=== PATIENT | female | born 1935 | race Caucasian/White ===

== ENCOUNTER → 2024-09-27 | Outpatient (CLI) | payer MEDICARE, OTHER ==
[2024-09-27 15:26] LABS: BUN/Creat Ratio 20.46 Ratio (12.00-20.00); Blood Urea Nitrogen 26.6 mg/dL (9.0-27.0); Calcium 9.1 mg/dL (8.7-10.3); Carbon Dioxide 32.4 mmol/L (21.6-31.8); Chloride 93 mmol/L (96-109); Glucose 115 mg/dL (70-110); Magnesium 1.4 mg/dL (1.5-2.4); Potassium 2.8 mmol/L (3.5-5.5); Sodium 138 mmol/L (135-145)
== END | disposition home or self-care (01) ==
LOC: LABWHC1 08:33
PROVIDERS: ATTEND Internal Medicine Nephrology
DX: E83.40 Disorders of magnesium metabolism, unspecified (principal); N18.9 Chronic kidney disease, unspecified
CPT/HCPCS: 36415; 80048; 83735

== ENCOUNTER 2024-10-09 16:06 | Emergency (ER) | payer MEDICARE, OTHER ==
--- NOTE | 2024-10-09 16:28 | ED ---
Chest Pain HPI - General Chief Complaint: Chest Pain Stated Complaint: Chest Pain Time Seen by Provider: 10/09/24 16:14 Source: patient Mode of arrival: wheelchair Limitations: no limitations - History of Present Illness Initial Comments: This patient is an 89-year-old woman who arrives here with complaint of left- sided chest pain that she noticed between 2 and 230 this afternoon while she was in her kitchen. The patient has noted a pleuritic component. The pain is achy but sometimes sharp when she takes a deep breath. She has not noted other wor sening or relieving factors. No fever or chills. No cough. She has some baseline dyspnea with exertion and she has not noted a change there. 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 She gets the majority of her oncology treatment in [place] where she spends part of the year. She does not have a local physician yet. The patient also has history of atrial fibrillation and is taking Eliquis. MD Complaint: chest pain Onset/Timin -: hour(s) Onset: during rest Pain Location: left chest Pain Radiation: LUE Severity: moderate Quality: aching, sharp Consistency: constant Improves With: nothing Worsens With: inspiration Treatments Prior to Arrival: none - Related Data Previous Rx's Medication Instructions Recorded predniSONE 60 mg PO DAILY #30 tab 10/09/24 Allergies Allergy/AdvReac Type Severity Reaction Status Date / Time allopurinol Allergy Anaphylaxis Verified 10/09/24 16:13 Penicillins Allergy Rash/Hives Verified 10/09/24 16:13 Review of Systems ROS Statement: Those systems with pertinent positive or pertinent negative responses have been documented in the HPI. ROS Other: All systems not noted in ROS Statement are negative. Constitutional: Denies: fever, chills Respiratory: Denies: cough, dyspnea Cardiovascular: Reports: chest pain, dyspnea on exertion. Denies: palpitations, orthopnea, edema, syncope Gastrointestinal: Denies: abdominal pain, nausea, vomiting Genitourinary: Denies: dysuria, hematuria Musculoskeletal: Denies: back pain Skin: Denies: rash Neurological: Denies: headache, weakness EKG Findings - EKG Results: EKG: interpreted by MIRTHA, normal axis EKG shows: atrial fibrillation (Rate 87 bpm) - Blocks, Stella, Hypertrophy, ST Abn: QRS axis and voltage: low voltage (<0.5 MV total QRS and <1.0 MV in each precordial lead) Past Medical History Past Medical History: Atrial Fibrillation, Cancer, Heart Failure, Hyperlipidemia, Hypertension, Thyroid Disorder History of Any Multi-Drug Resistant Organisms: None Reported Past Surgical History: Breast Surgery, Section, Hysterectomy, Joint Replacement, Orthopedic Surgery, Tonsillectomy Past Psychological History: No Psychological Hx Reported Smoking Status: Former smoker Past Alcohol Use History: Occasional Past Drug Use History: Marijuana General Exam Limitations: no limitations General appearance: alert, in no apparent distress Head exam: Present: atraumatic, normocephalic Eye exam: Present: normal appearance. Absent: scleral icterus, conjunctival injection ENT exam: Present: normal oropharynx Neck exam: Present: normal inspection Respiratory exam: Present: normal lung sounds bilaterally. Absent: respiratory distress, wheezes, rales, rhonchi, stridor, accessory muscle use Cardiovascular Exam: Present: irregular rhythm, normal heart sounds. Absent: systolic murmur, diastolic murmur, rubs, gallop GI/Abdominal exam: Present: soft. Absent: distended, tenderness, guarding, rebound, rigid, mass Extremities exam: Present: normal inspection, normal capillary refill. Absent: pedal edema, calf tenderness Back exam: Present: normal inspection. Absent: CVA tenderness (R), CVA tenderness (L) Neurological exam: Present: alert Skin exam: Present: warm, dry, intact, normal color. Absent: rash Course Vital Signs 10/09/24 10/09/24 10/09/24 16:09 16:28 16:33 Temperature 97.9 F Pulse Rate 63 Pulse Rate [ 85 Right Supine Pulse Oximetery ] Respiratory 16 19 Rate Blood Pressure 142/90 O2 Sat by Pulse 94 L Oximetry 10/09/24 20:20 Temperature 98.5 F Pulse Rate 73 Pulse Rate [ Right Supine Pulse Oximetery ] Respiratory 19 Rate Blood Pressure 108/58 O2 Sat by Pulse 95 Oximetry [facility] Patient is an 89-year-old woman here to have evaluation of pleuritic chest pain. She does have history of a reported recurrence of breast cancer within the chest. Given the history the patient had CT angiogram of the chest which I interpreted as negative for acute pulmonary embolism, negative for pneumothorax. The patient was feeling better following analgesic, she is to follow-up with the oncologist for further evaluation. Was pt. sent in by a medical professional or institution ([facility] Joshi, [employer], urgent care, hospital, or correction...) When possible be specific @ -[No] Did you speak to anyone other than the patient for history (EMS, parent, family, police, friend...)? What history was obtained from this source @ -[No] Did you review nursing and triage notes (agree or disagree)? Why? @ -[I reviewed and agree with nursing and triage notes] Were old charts reviewed (outside hosp., previous admission, EMS record, old EKG, old radiological studies, urgent care reports/EKG's, correction records)? Report findings @ -[No old charts were reviewed] Differential Diagnosis (chest pain, altered mental status, abdominal pain women, abdominal pain men, vaginal bleeding, weakness, fever, dyspnea, syncope, headache, dizziness, GI bleed, back pain, seizure, CVA, palpatations, mental health, musculoskeletal)? @ -[Differential Chest Pain: Stable Angina, Unstable Angina, STEMI, NSTEMI Aortic Dissection, Pneumothorax, Musculoskeletal, Esophageal Spasm GERD, Cholecystitis, Pancreatitis, Zoster, th is is not meant to be an all-inclusive list. EKG interpreted by me (3pts min.). @ -[I interpreted as above] X-rays interpreted by me (1pt min.). @ -[None done] CT interpreted by me (1pt min.). @ -[I interpreted as above U/S interpreted by me (1pt. min.). @ -[None done] What testing was considered but not performed or refused? (CT, X-rays, U/S, labs)? Why? @ -[None] What meds were considered but not given or refused? Why? @ -[None] Did you discuss the management of the patient with other professionals (professionals i.e. KIMMIE Joshi, [employer], lab, RT, psych nurse, health social work professor, web development manager, teacher, chief procurement officer, protective services case worker)? Give summary @ -[No] Was smoking cessation discussed for >3mins.? @ -[No] Was critical care preformed (if so, how long)? @ -[No] Were there social determinants of health that impacted care today? How? (Homelessness, low income, unemployed, alcoholism, drug addiction, transportation, low edu. Level, literacy, decrease access to med. care, shelter, rehab)? @ -[No] Was there de-escalation of care discussed even if they declined (Discuss DNR or withdrawal of care, Hospice)? DNR status @ -[No] What co-morbidities impacted this encounter? (DM, HTN, Smoking, COPD, CAD, Cancer, CVA, ARF, Chemo, Hep., AIDS, mental health diagnosis, sleep apnea, morbid obesity)? @ -[Breast cancer with reported recurrence in the chest Was patient admitted / discharged? Hospital course, mention meds given and route, prescriptions, significant lab abnormalities, going to OR and other pertinent info. @ -[As above Undiagnosed new problem with uncertain prognosis? @ -[No] Drug Therapy requiring intensive monitoring for toxicity (Heparin, Nitro, Insulin, Cardizem)? @ -[No] Were any procedures done? @ -[No] Diagnosis/symptom? @ -[Pleuritic chest pain Acute, or Chronic, or Acute on Chronic? @ -[Acute Uncomplicated (without systemic symptoms) or Complicated (systemic symptoms)? @ -[Uncomplicated Side effects of treatment? @ -[No] Exacerbation, Progression, or Severe Exacerbation? @ -[No] Poses a threat to life or bodily function? How? (Chest pain, [place], [place], pneumonia, PE, COPD, DKA, ARF, appy, cholecystitis, CVA, Diverticulitis, Homicidal, Suicidal, threat to staff... and all critical care pts) @ -Requires further oncology evaluation, discussed follow-up and return parameters All treatments are based on ideal body weight as in ED triage Disposition Clinical Impression: Pleuritic chest pain Disposition: HOME SELF-CARE Condition: Good Instructions (If sedation given, give patient instructions): Chest Pain (ED) Prescriptions: predniSONE 60 mg PO DAILY #30 tab Is patient prescribed a controlled substance at d/c from ED?: No Referrals: Nonstaff,Physician [Primary Care Provider] - 1-2 days Forms: Area PCPs
[2024-10-09 16:33] VITALS: RESP 19
[2024-10-09 16:48] LABS: Appearance,Urine Clear (Clear); Bilirubin,Urine Negative (Negative); Blood,Urine Negative (Negative); Color,Urine Colorless; Glucose,Urine (UA) Negative (Negative); Ketones,Urine Negative (Negative); Leukocyte Esterase,Urine Negative (Negative); Nitrite,Urine Negative (Negative); PH, Urine 5.5 (5.0-8.0); Protein,Urine Negative (Negative); Specific Gravity,Urine 1.006 (1.001-1.035); Urobilinogen,Urine <2.0 mg/dL (<2.0)
[2024-10-09 17:07] LABS: Basophils # (A) 0.07 10*3/uL (0.00-0.10); Basophils % (A) 2.1 %; Eosinophils # (A) 0.03 10*3/uL (0.04-0.35); Eosinophils % (A) 0.9 %; HCT 35.3 % (37.2-46.3); HGB 12.2 g/dL (12.0-15.0); Lymphocytes % (A) 26.6 %; MCH 40.5 pg (27.0-32.0); MCHC 34.6 g/dL (32.0-37.0); MCV 117.3 fL (80.0-97.0); Monocytes # (A) 0.29 10*3/uL (0.20-1.00); Monocytes % (A) 8.6 %; Neutrophils # (A) 2.07 10*3/uL (1.80-7.70); Neutrophils % (A) 61.2 %; Platelet Count 291 10*3/uL (140-440); RBC 3.01 10*6/uL (4.10-5.20); WBC 3.38 10*3/uL (4.50-10.00)
[2024-10-09 17:23] LABS: ALT 18 U/L (4-34); AST 33 U/L (14-36); African American GFR (CKD) 33 (>60 ml/min/1.73 sqM); Albumin 4.3 g/dL (3.5-5.0); Alkaline Phosphatase 68 U/L (38-126); Anion Gap 10 mmol/L; Blood Urea Nitrogen 32 mg/dL (7-17); Calcium 10.6 mg/dL (8.4-10.2); Carbon Dioxide 29 mmol/L (22-30); Chloride 97 mmol/L (98-107); Glucose 102 mg/dL (74-99); Magnesium 2.2 mg/dL (1.6-2.3); Non-African American GFR(CKD) 29 (>60 ml/min/1.73 sqM); Potassium 4.1 mmol/L (3.5-5.1); Sodium 136 mmol/L (137-145); Total Bilirubin 0.8 mg/dL (0.2-1.3); Total Protein 7.1 g/dL (6.3-8.2)
[2024-10-09 17:26] LABS: Partial Thromboplastin Time 24.3 sec (22.0-30.0); Prothrombin Time 11.4 sec (10.0-12.5)
[2024-10-09] MEDS: SODIUM CHLORIDE 0.9% 500 ML 500 ML IV STA (18:17)
--- NOTE | 2024-10-09 19:41 | CT ---
EXAMINATION TYPE: CT chest angio for PE DATE OF EXAM: 10/09/2024 7:27 PM COMPARISON: Chest radiograph 08/17/2024. CLINICAL INDICATION: Female, 89 years old with history of chest pain, possible PE; CP, elevated D-dim er. R/O PE. TECHNIQUE/CONTRAST: CTA scan of the thorax is performed with IV Contrast, patient injected with 80 ml mL of Isovue 370, M IP images are created and reviewed these are created on a separate workstation.. CT DLP: 534.2 mGycm, Automated exposure control for dose reduction was used. FINDINGS: Pulmonary Artery: There is no evidence for a filling defect within the pulmonary vasculature to sugge st acute pulmonary embolism. The pulmonary artery is of normal size. Lungs/Pleura: No evidence of focal consolidation, pleural effusion or pneumothorax. Airway: Large airways are patent. Heart: Cardiomegaly and coronary artery calcifications. No significant pericardial effusion. Vasculature: No evidence of aortic aneurysm. Mediastinum: No gross evidence of adenopathy. Bilateral breast implants. Musculoskeletal: No acute osseous abnormalities. Right shoulder arthroplasty. Multilevel thoracic spi ne degenerative changes. Soft Tissues/lymph nodes: Unremarkable. Lower neck: No significant findings. Upper Abdomen: No significant findings. IMPRESSION: 1. No evidence of acute pulmonary embolism or acute pulmonary pathology. 2. Cardiomegaly and coronary artery calcifications. 3. Additional nonacute findings as above. [facility], , 10/09/2024 7:39 PM
[2024-10-09] MEDS: predniSONE 20 MG TAB PO STA (20:18)
[2024-10-09 20:21] VITALS: BP 108/58; PULSE 73; TEMP 98.5
== END 2024-10-09 20:40 | disposition home or self-care (01) ==
LOC: EC 16:06
DX: R07.89 Other chest pain (principal); Z87.891 Personal history of nicotine dependence; Z88.0 Allergy status to penicillin; Z88.8 Allergy status to other drugs, medicaments and biological substances
CPT/HCPCS: 36415; 93005; 80053; 83735; 84484; 85025; 85610; 85730; 81003; 71275; 99285; 96360; J7512; Q9967